=== PATIENT | female | born 1935 | race Hispanic/Latino ===

== ENCOUNTER 2018-10-30 14:52 | Emergency (ER) | payer MEDICARE ==
[2018-10-30 15:14] LABS: #Eosinphils 0.1 thou/uL (0.0-0.7); #Monocytes 0.5 thou/uL (0.11-0.59); #Neutrophils 5.7 thou/uL (1.40-6.50); %Basophils 0.2 % (0.0-1.0); %Eosinophils 0.8 % (0.0-10.0); %Lymphocytes 24.2 % (21.0-51.0); %Monocytes 6.2 % (0.0-10.0); %Neutrophils 68.6 % (42.0-75.0); Hemoglobin 12.9 g/dL (12.0-16.0); Mean Corpuscular HGB CONC 32.3 g/dL (32.0-36.0); Mean Corpuscular Hemoglobin 30.5 pg (27.0-31.0); Mean Corpuscular Volume 94.7 fL (78.0-98.0); Mean Platelet Volume 6.6 fL (7.4-10.4); Platelet Count 238 thou/uL (130-400); RBC Distribution Width 12.1 % (11.5-14.5); Red Blood Cell (RBC) Count 4.23 mill/uL (4.20-5.40); White Blood Cell (WBC) Count 8.4 thou/uL (4.8-10.8)
[2018-10-30 15:35] LABS: ALT (SGPT) 14 U/L (8-55); AST (SGOT) 19 U/L (5-34); Albumin 4.4 g/dL (3.4-4.8); Alkaline Phosphatase 65 U/L (40-150); Anion Gap 10 mmol/L (10-20); BUN (Urea Nitrogen) 15 mg/dL (9.8-20.1); Bilirubin, Total 0.7 mg/dL (0.2-1.2); Calc. Creatinine Clearance 0 mL/min (70-130); Calcium 10.1 mg/dL (7.8-10.44); Carbon Dioxide 28 mmol/L (23-31); Chloride 106 mmol/L (98-107); Estimated GFR-MDRD 62; Globulin 3.1 g/dL (2.4-3.5); Glucose 108 mg/dL (83-110); Potassium 4.8 mmol/L (3.5-5.1); Protein, Total 7.5 g/dL (6.0-8.3); Sodium 139 mmol/L (136-145)
--- NOTE | 2018-10-30 16:11 | RAD ---
2 VIEWS ABDOMEN AND UPRIGHT VIEW OF CHEST: Date: 10/30/18 COMPARISON: None. HISTORY: No BM for past 3 days. FINDINGS: Supine and upright views of the abdomen and upright view of the chest show a nonspecific, nonobstruct ed bowel gas pattern. A small amount of stool is seen in the rectal vault. Air fluid levels are seen in the right colon, most likely secondary to diarrhea. No distended small bowel loops are seen. Surgi rita clips are seen in the upper abdomen. There is a normal sized cardiomediastinal silhouette. There is no evidence of consolidation, mass, or pleural effusion. IMPRESSION: Nonobstructed bowel gas pattern. POS: [facility]
[2018-10-30] MEDS ORDERED: Fleet Enema 133 ML BOT PR SCH ×2 (17:45→19:45)
== END 2018-10-30 21:37 | disposition home or self-care (01) ==
LOC: ERS 14:52
DX: K59.00 Constipation, unspecified (principal); E78.5 Hyperlipidemia, unspecified; Z79.82 Long term (current) use of aspirin; Z79.899 Other long term (current) drug therapy; Z79.84 Long term (current) use of oral hypoglycemic drugs
CPT/HCPCS: 36415; 74022; 80053; 85025

== ENCOUNTER 2020-08-06 10:58 | Emergency (ER) | payer MEDICARE, OTHER ==
[2020-08-06 12:25] LABS: #Lymphocytes 1.6 thou/uL (1.20-3.40); #Monocytes 0.5 thou/uL (0.11-0.59); #Neutrophils 5.2 thou/uL (1.40-6.50); %Basophils 0.1 % (0.0-1.0); %Eosinophils 0.7 % (0.0-10.0); %Lymphocytes 21.5 % (21.0-51.0); %Monocytes 6.5 % (0.0-10.0); %Neutrophils 71.3 % (42.0-75.0); Hemoglobin 12.1 g/dL (12.0-16.0); Mean Corpuscular HGB CONC 32.2 g/dL (32.0-36.0); Mean Corpuscular Hemoglobin 30.4 pg (27.0-31.0); Mean Corpuscular Volume 94.5 fL (78.0-98.0); Mean Platelet Volume 7.1 fL (7.4-10.4); Platelet Count 216 thou/uL (130-400); RBC Distribution Width 12.5 % (11.5-14.5); Red Blood Cell (RBC) Count 3.99 mill/uL (4.20-5.40); White Blood Cell (WBC) Count 7.3 thou/uL (4.8-10.8)
[2020-08-06 12:50] LABS: ALT (SGPT) 11 U/L (8-55); AST (SGOT) 22 U/L (5-34); Albumin 3.9 g/dL (3.4-4.8); Alkaline Phosphatase 63 U/L (40-110); Anion Gap 15 mmol/L (10-20); BUN (Urea Nitrogen) 13 mg/dL (9.8-20.1); Bilirubin, Total 0.4 mg/dL (0.2-1.2); Calc. Creatinine Clearance 0 mL/min (70-130); Calcium 9.1 mg/dL (7.8-10.44); Carbon Dioxide 24 mmol/L (23-31); Chloride 105 mmol/L (98-107); Globulin 3.4 g/dL (2.4-3.5); Glucose 110 mg/dL (83-110); Lipase 33 U/L (8-78); Potassium 5.1 mmol/L (3.5-5.1); Protein, Total 7.3 g/dL (5.8-8.1); Sodium 139 mmol/L (136-145)
[2020-08-06] MEDS ORDERED: Iopamidol-370 76% 500 ML 1 ML ONE (12:50)
[2020-08-06] MEDS ORDERED: Fleet Enema 133 ML BOT FS SCH (14:00)
== END 2020-08-06 16:00 | disposition home or self-care (01) ==
LOC: ERS 10:58
DX: K59.00 Constipation, unspecified (principal); K83.8 Other specified diseases of biliary tract; E78.5 Hyperlipidemia, unspecified; Z79.82 Long term (current) use of aspirin
CPT/HCPCS: 74177; 80053; 83690; 85025; Q9967